=== PATIENT | female | born 1970 | race African-American/Black ===

== ENCOUNTER → 2019-09-15 | Outpatient (CLI) | payer OTHER ==
[2019-09-15 12:50] LABS: ABSOLUTE EOSINOPHILS 0.1 thou/uL (0.0-0.7); ABSOLUTE LYMPHOCYTES 1.8 thou/uL (0.8-5.3); ABSOLUTE MONOCYTES 0.4 thou/uL (0.0-1.2); ABSOLUTE NEUTROPHILS 2.1 thou/uL (1.6-8.1); BASOPHILS 1.1 %; EOSINOPHILS 2.5 %; HEMATOCRIT 41.2 % (37.0-47.0); LYMPHOCYTES 39.6 %; MCH 25.9 pg (26.0-34.0); MCV 76.3 fL (80.0-100.0); MONOCYTES 8.8 %; MPV 8.6 fl. (7.2-11.1); NUCLEATED RBCS 0 /100WBC; PLATELET COUNT* 286 thou/uL (150-400); RDW-CV 14.4 % (10.5-14.5); WBC 4.4 thou/uL (4.0-11.0)
[2019-09-15 13:07] LABS: ALBUMIN 3.6 g/dL (3.4-5.0); ALKALINE PHOSPHATASE 64 U/L (46-116); ANION GAP 5 mmol/L (7-16); BUN 10 mg/dL (7-18); CALCIUM 8.3 mg/dL (8.5-10.1); CHLORIDE 104 mmol/L (98-107); CHOLESTEROL 206 mg/dL (<200); CO2 29 mmol/L (21-32); CREATININE 1.1 mg/dL (0.6-1.3); GLUCOSE 82 mg/dL (70-99); HDL CHOLESTEROL 61 mg/dL (>40); LDL CHOLESTEROL 133 mg/dL (<100); SGOT 22 U/L (15-37); SGPT 22 U/L (30-65); SODIUM 138 mmol/L (136-145); TC:HDL 3.4 Ratio (Not establshd); TOTAL BILIRUBIN 0.4 mg/dL (<0.1-1.0); TOTAL PROTEIN 7.5 g/dL (6.4-8.2); TRIGLYCERIDE 61 mg/dL (<150); VLDL 12 mg/dL (<40)
[2019-09-15 13:08] LABS: SERUM ASSESSMENT Clear
[2019-09-15 13:19] LABS: URINE BILIRUBIN NEGATIVE (Negative); URINE BLOOD NEGATIVE (Negative); URINE CLARITY CLEAR; URINE COLOR YELLOW; URINE GLUCOSE-RANDOM NEGATIVE (Negative); URINE KETONES NEGATIVE (Negative); URINE LEUKOCYTES NEGATIVE (Negative); URINE NITRITE NEGATIVE (Negative); URINE PROTEIN NEGATIVE (Negative); URINE SPECIFIC GRAVITY >= 1.030 (1.005-1.030)
== END ==
LOC: M.LAB 12:19
PROVIDERS: ATTEND Family Medicine
DX: U07.1 COVID-19 (principal); Z00.00 Encounter for general adult medical examination without abnormal findings

== ENCOUNTER → 2019-11-29 | Outpatient (CLI) | payer OTHER ==
[2019-11-29 08:55] LABS: HEMATOCRIT 39.5 % (37.0-47.0); HEMOGLOBIN 13.7 gm/dL (12.0-15.0); MCH 25.8 pg (26.0-34.0); MCHC 34.7 g/dL (28.0-37.0); MCV 74.3 fL (80.0-100.0); RBC 5.32 mil/uL (4.20-5.00); RDW-CV 14.4 % (10.5-14.5); WBC 4.9 thou/uL (4.0-11.0)
[2019-11-29 09:01] LABS: ANION GAP 8 mmol/L (7-16); BUN 13 mg/dL (7-18); CALCIUM 8.5 mg/dL (8.5-10.1); CHLORIDE 104 mmol/L (98-107); CO2 27 mmol/L (21-32); GLUCOSE 95 mg/dL (70-99); POTASSIUM 4.2 mmol/L (3.5-5.1); SODIUM 139 mmol/L (136-145)
[2019-11-29 09:06] LABS: ALBUMIN 3.2 g/dL (3.4-5.0); ALKALINE PHOSPHATASE 55 U/L (46-116); CHOLESTEROL 201 mg/dL (<200); HDL CHOLESTEROL 68 mg/dL (>40); LDL CHOLESTEROL 125 mg/dL (<100); SERUM ASSESSMENT Clear; SGOT 18 U/L (15-37); SGPT 9 U/L (30-65); TOTAL BILIRUBIN 0.5 mg/dL (<0.1-1.0); TOTAL PROTEIN 6.7 g/dL (6.4-8.2); TRIGLYCERIDE 44 mg/dL (<150); VLDL 9 mg/dL (<40)
[2019-11-30 02:06] LABS: GLYCOHEMOGLOBIN (HGB A1C) 5.7 % (4.8-5.6)
== END ==
LOC: M.RAD 08:26 → M.ULTRA 10:30
PROVIDERS: ATTEND Family Medicine
DX: Z01.89 Encounter for other specified special examinations (principal); N63.10 Unspecified lump in the right breast, unspecified quadrant; N63.20 Unspecified lump in the left breast, unspecified quadrant; N83.9 Noninflammatory disorder of ovary, fallopian tube and broad ligament, unspecified; N83.201 Unspecified ovarian cyst, right side; Z87.42 Personal history of other diseases of the female genital tract; Z80.3 Family history of malignant neoplasm of breast; Z90.710 Acquired absence of both cervix and uterus

== ENCOUNTER 2019-12-19 00:47 | Emergency (ER) | payer OTHER ==
[~2019-12-19] VITALS: Ht 165.1 cm; Wt 84.8 kg
[2019-12-19] MEDS ORDERED: ONZETRA XSAIL11 MG NARES (01:25)
[2019-12-19] MEDS ORDERED: SPIRONOLACTONE100 M3 PO (01:26)
[2019-12-19] MEDS ORDERED: TOPIRAMATE 100100 MG PO (01:26)
[2019-12-19] MEDS ORDERED: PROZAC20 M1 PO (01:27)
[2019-12-19] MEDS ORDERED: WELLBUTRIN SR100 MG PO (01:27)
[2019-12-19] MEDS ORDERED: VITAMIN D310 MC4 PO (01:27)
[2019-12-19] MEDS ORDERED: HYDROCODON-ACE1 EAC8 PO (02:38)
[2019-12-19] MEDS ORDERED: FLEXERIL PO (02:38)
[2019-12-19 03:12] VITALS: BP 123/79
== END 2019-12-19 03:13 | disposition home or self-care (01) ==
LOC: M.ERS 00:47
DX: S40.212A Abrasion of left shoulder, initial encounter (principal); M25.522 Pain in left elbow; Z88.1 Allergy status to other antibiotic agents; V29.69XA Unspecified motorcycle rider injured in collision with other motor vehicles in traffic accident, initial encounter; Y93.89 Activity, other specified; Y92.89 Other specified places as the place of occurrence of the external cause; Y99.8 Other external cause status

== ENCOUNTER → 2019-12-26 | Outpatient (CLI) | payer OTHER ==
[~2019-12-26] MED LIST: FLEXERIL PO; HYDROCODON-ACE1 EAC8 PO; ONZETRA XSAIL11 MG NARES; PROZAC20 M1 PO; SPIRONOLACTONE100 M3 PO; TOPIRAMATE 100100 MG PO; VITAMIN D310 MC4 PO; WELLBUTRIN SR100 MG PO
== END ==
LOC: M.MRI 12-23 11:01 → M.RAD 07:57 → M.MRI 11:30 → M.RAD 12-27 10:00 → M.MRI 12-27 11:30
PROVIDERS: ATTEND Orthopaedic Surgery
DX: M25.552 Pain in left hip (principal); M75.102 Unspecified rotator cuff tear or rupture of left shoulder, not specified as traumatic; Z79.899 Other long term (current) drug therapy

== ENCOUNTER → 2020-01-13 | Outpatient (CLI) | payer OTHER | LOC: M.LAB 07:14 | PROVIDERS: ATTEND Orthopaedic Surgery | DX: Z01.812 Encounter for preprocedural laboratory examination (principal); Z20.828 Contact with and (suspected) exposure to other viral communicable diseases ==

== ENCOUNTER → 2020-05-22 | Outpatient (CLI) | payer OTHER ==
[~2020-05-22] MED LIST changes: +B12INJ IM; +ELIQUIS2.5 MG PO; +HYDROCODON-ACE1 EAC7 PO; +IBU600 MG PO; +LOVENOX40 MG/0.4 SUBQ
== END ==
LOC: M.MRI 03:17
PROVIDERS: ATTEND Surgery
DX: N64.89 Other specified disorders of breast (principal)

== ENCOUNTER → 2020-05-25 | Outpatient (CLI) | payer OTHER ==
[2020-05-25 09:02] LABS: ALBUMIN 3.6 g/dL (3.4-5.0); ALKALINE PHOSPHATASE 60 U/L (46-116); ANION GAP 7 mmol/L (7-16); BUN 15 mg/dL (7-18); CALCIUM 9.2 mg/dL (8.5-10.1); CHLORIDE 103 mmol/L (98-107); CHOLESTEROL 223 mg/dL (<200); CO2 30 mmol/L (21-32); GLUCOSE 84 mg/dL (70-99); HDL CHOLESTEROL 63 mg/dL (>40); LDL CHOLESTEROL 149 mg/dL (<100); POTASSIUM 4.2 mmol/L (3.5-5.1); SGOT 18 U/L (15-37); SGPT 18 U/L (30-65); SODIUM 140 mmol/L (136-145); TC:HDL 3.5 Ratio (Not establshd); TOTAL BILIRUBIN 0.6 mg/dL (<0.1-1.0); TOTAL PROTEIN 7.1 g/dL (6.4-8.2); TRIGLYCERIDE 58 mg/dL (<150); VLDL 12 mg/dL (<40)
[2020-05-25 09:03] LABS: SERUM ASSESSMENT Clear
[2020-05-26 02:06] LABS: GLYCOHEMOGLOBIN (HGB A1C) 5.3 % (4.8-5.6)
== END ==
LOC: M.LAB 08:21
PROVIDERS: ATTEND Family Medicine
DX: Z00.00 Encounter for general adult medical examination without abnormal findings (principal)

== ENCOUNTER → 2020-10-22 | Outpatient (CLI) | payer OTHER ==
[~2020-10-22] MED LIST changes: +CEFDINIR300 MG PO; +PROBIOTIC1 EAC1 PO; +PROMETHAZINE12.5 M1 PO; +TYLENOL EXTRA500 MG PO
== END ==
LOC: M.MRI 13:26
PROVIDERS: ATTEND Nurse Practitioner Family
DX: S83.281A Other tear of lateral meniscus, current injury, right knee, initial encounter (principal); M25.561 Pain in right knee; F40.240 Claustrophobia; X58.XXXA Exposure to other specified factors, initial encounter; Y93.89 Activity, other specified; Y92.89 Other specified places as the place of occurrence of the external cause; Y99.8 Other external cause status

== ENCOUNTER → 2020-11-28 | Outpatient (CLI) | payer OTHER | LOC: M.RAD 07:00 | PROVIDERS: ATTEND Nurse Practitioner Family | DX: Z12.31 Encounter for screening mammogram for malignant neoplasm of breast (principal) ==

== ENCOUNTER → 2020-12-04 | Outpatient (CLI) | payer OTHER | LOC: M.LAB 07:36 | PROVIDERS: ATTEND Orthopaedic Surgery | DX: Z01.812 Encounter for preprocedural laboratory examination (principal); Z20.822 Contact with and (suspected) exposure to COVID-19 ==

== ENCOUNTER → 2021-01-07 | Outpatient (CLI) | payer OTHER ==
[2021-01-07 08:22] LABS: ALBUMIN 3.7 g/dL (3.4-5.0); ALKALINE PHOSPHATASE 78 U/L (46-116); ANION GAP 7 mmol/L (7-16); BUN 20 mg/dL (7-18); CHLORIDE 106 mmol/L (98-107); CHOLESTEROL 211 mg/dL (<200); CO2 30 mmol/L (21-32); CREATININE 1.1 mg/dL (0.6-1.3); GLUCOSE 88 mg/dL (70-99); HDL CHOLESTEROL 70 mg/dL (>40); LDL CHOLESTEROL 131 mg/dL (<100); SGOT 16 U/L (15-37); SGPT 19 U/L (30-65); SODIUM 143 mmol/L (136-145); TOTAL BILIRUBIN 0.4 mg/dL (<0.1-1.0); TOTAL PROTEIN 7.3 g/dL (6.4-8.2); TRIGLYCERIDE 53 mg/dL (<150); VLDL 11 mg/dL (<40)
[2021-01-07 08:23] LABS: SERUM ASSESSMENT Clear
[2021-01-07 08:26] LABS: HEMATOCRIT 38.6 % (37.0-47.0); HEMOGLOBIN 12.8 gm/dL (12.0-15.0); MCH 24.6 pg (26.0-34.0); MCHC 33.1 g/dL (28.0-37.0); MCV 74.2 fL (80.0-100.0); MPV 7.9 fl. (7.2-11.1); RBC 5.19 mil/uL (4.20-5.00); WBC 4.3 thou/uL (4.0-11.0)
[2021-01-07 23:06] LABS: GLYCOHEMOGLOBIN (HGB A1C) 5.7 % (4.8-5.6)
== END ==
LOC: M.LAB 07:42
PROVIDERS: ATTEND Surgery
DX: K21.9 Gastro-esophageal reflux disease without esophagitis (principal); R29.898 Other symptoms and signs involving the musculoskeletal system

== ENCOUNTER → 2021-05-03 | Outpatient (CLI) | payer OTHER ==
[2021-05-03 08:12] LABS: HEMATOCRIT 38.1 % (37.0-47.0); HEMOGLOBIN 12.8 gm/dL (12.0-15.0); MCHC 33.7 g/dL (28.0-37.0); MCV 74.2 fL (80.0-100.0); MPV 7.7 fl. (7.2-11.1); RBC 5.13 mil/uL (4.20-5.00); RDW-CV 14.6 % (10.5-14.5); WBC 2.9 thou/uL (4.0-11.0)
[2021-05-03 08:33] LABS: ALBUMIN 3.5 g/dL (3.4-5.0); ALKALINE PHOSPHATASE 73 U/L (46-116); ANION GAP 6 mmol/L (7-16); BUN 15 mg/dL (7-18); CALCIUM 8.9 mg/dL (8.5-10.1); CHLORIDE 106 mmol/L (98-107); CHOLESTEROL 200 mg/dL (<200); CO2 31 mmol/L (21-32); CREATININE 0.9 mg/dL (0.6-1.3); GLUCOSE 82 mg/dL (70-99); HDL CHOLESTEROL 74 mg/dL (>40); LDL CHOLESTEROL 119 mg/dL (<100); POTASSIUM 4.5 mmol/L (3.5-5.1); SGOT 18 U/L (15-37); SGPT 18 U/L (30-65); SODIUM 143 mmol/L (136-145); TC:HDL 2.7 Ratio (Not establshd); TOTAL BILIRUBIN 0.5 mg/dL (<0.1-1.0); TOTAL PROTEIN 6.9 g/dL (6.4-8.2); TRIGLYCERIDE 37 mg/dL (<150); VLDL 7 mg/dL (<40)
[2021-05-03 08:39] LABS: SERUM ASSESSMENT CLEAR
[2021-05-04 07:35] LABS: GLYCOHEMOGLOBIN (HGB A1C) 5.6 % (4.8-5.6)
== END ==
LOC: M.LAB 07:40
PROVIDERS: ATTEND Nurse Practitioner Family
DX: Z13.220 Encounter for screening for lipoid disorders (principal); Z13.29 Encounter for screening for other suspected endocrine disorder; Z13.1 Encounter for screening for diabetes mellitus; R23.2 Flushing; E55.9 Vitamin D deficiency, unspecified; Z83.3 Family history of diabetes mellitus

== ENCOUNTER → 2021-05-07 | Outpatient (CLI) | payer OTHER ==
[2021-05-07 18:24] LABS: % SATURATION 31 % (20-39); IRON 69 ug/dL (50-175)
== END ==
LOC: M.LAB 17:01
PROVIDERS: ATTEND Nurse Practitioner Family
DX: R79.89 Other specified abnormal findings of blood chemistry (principal)